=== PATIENT | female | born 1940 | race Caucasian/White ===

== ENCOUNTER 2022-12-27 11:48 | Inpatient (IN) | payer MEDICARE, OTHER ==
[~2022-12-27] VITALS: Ht 170.2 cm; Wt 37.8 kg
[2022-12-27] MEDS ORDERED: IV NORMAL SALINE 1000 ML BAG IV ONE (12:15)
[2022-12-27] MEDS ORDERED: CEFTRIAXONE 2 G in IV DEXTROSE 5% 100 ML IV ONE (12:15)
[2022-12-27 12:23] LABS: BASOPHILS # (AUTO) 0.1 K/UL (0.0-0.2); BASOPHILS % (AUTO) 1.3 % (0.0-2.0); EOSINOPHILS # (AUTO) 0.1 K/uL (0.0-0.7); EOSINOPHILS % (AUTO) 0.8 % (0.0-7.0); HEMATOCRIT 32.1 % (31.2-41.9); HEMOGLOBIN 10.4 g/dL (10.9-14.3); LYMPHOCYTES # (AUTO) 1.4 K/uL (0.8-4.8); LYMPHOCYTES % (AUTO) 20.3 % (20.5-51.5); MEAN CORPUSCULAR HEMOGLOBIN 29.2 uug (24.7-32.8); MEAN CORPUSCULAR HGB CONC 32 g/dL (32.3-35.6); MEAN CORPUSCULAR VOLUME 90.1 fL (75.5-95.3); MONOCYTES # (AUTO) 2.4 K/uL (0.1-1.30); MONOCYTES % (AUTO) 35.5 % (0.0-11.0); NEUTROPHILS # (AUTO) 2.9 K/uL (1.8-8.9); NEUTROPHILS % (AUTO) 42.1 % (38.5-71.5); PLATELET COUNT (AUTO) 210 K/uL (179-408); RED BLOOD CELL COUNT(AUTO) 3.56 MIL/uL (3.63-4.92); RED CELL DISTRIBUTION WIDTH 20.2 % (12.3-17.7); WHITE BLOOD COUNT (AUTO) 6.8 K/uL (3.8-11.8)
[2022-12-27] MEDS ORDERED: ACET-2605 PO (12:28)
[2022-12-27] MEDS ORDERED: ACET-2154 PO ×2 (12:28)
[2022-12-27] MEDS ORDERED: LEVO88TA39 PO (12:31)
[2022-12-27] MEDS ORDERED: ASPI81TA31 PO (12:31)
[2022-12-27] MEDS ORDERED: NITR0.4T48 SL (12:31)
[2022-12-27] MEDS ORDERED: EZET10TA15 PO (12:31)
[2022-12-27] MEDS ORDERED: QUET25TA PO (12:31)
[2022-12-27] MEDS ORDERED: ASCO500T85 PO (12:31)
[2022-12-27] MEDS ORDERED: SACU1TAB PO (12:31)
[2022-12-27] MEDS ORDERED: ZINC56.713 TP (12:31)
[2022-12-27] MEDS ORDERED: CARV3.122 PO (12:31)
[2022-12-27] MEDS ORDERED: MULT-213 PO (12:31)
[2022-12-27] MEDS ORDERED: BISA10SU95 RC (12:31)
[2022-12-27 12:53] LABS: CALCIUM 9.4 mg/dL (8.5-10.1); CARBON DIOXIDE 28 mmol/L (21-32); CHLORIDE 101 mmol/L (98-107); CREATININE 0.5 mg/dL (0.6-1.3); GLUCOSE 94 mg/dL (74-106); POTASSIUM 4.1 mmol/L (3.5-5.1); SODIUM SERUM 132 mmol/L (136-145); UREA NITROGEN, BLOOD 21 mg/dL (7-18)
[2022-12-27 12:54] LABS: DIFFERENTIAL COMMENT 1
[2022-12-27 13:06] LABS: ACETAMINOPHEN 4.2 ug/mL (10-30); ALANINE AMINOTRANSFERASE 22 U/L (14-59); ALBUMIN 2.9 g/dL (3.4-5.0); ALKALINE PHOSPHATASE 49 U/L (50-136); ASPARTATE AMINOTRANSFERASE 21 U/L (15-37); BILIRUBIN,DIRECT 0.1 mg/dL (0.0-0.2); BILIRUBIN,TOTAL 0.4 mg/dL (0.2-1.0); TOTAL PROTEIN, SERUM 8.6 g/dL (6.4-8.2)
[2022-12-27 13:09] LABS: AMMONIA < 10 umol/L (11-32)
[2022-12-27 13:46] LABS: *BILIRUBIN,URIN NEGATIVE (NEGATIVE); *CLARITY,URINE CLEAR (CLEAR); *COLOR,URINE YELLOW (YELLOW); *KETONES,URINE NEGATIVE (NEGATIVE); *PROTEIN,URINE NEGATIVE (NEGATIVE); *UROBILINOGEN,URINE 0.2 E.U./dl (NORMAL); LEUKOCYTE ESTERASE ,URINE NEGATIVE (NEGATIVE); NITRITE, URINE POSITIVE (NEGATIVE); PH,URINE 5.5 (5.0-8.0); UGLUCOSE NEGATIVE (NEGATIVE)
[2022-12-27 13:47] LABS: *BLOOD, URINE TRACE (NEGATIVE)
[2022-12-27 14:00] LABS: *AMPHETAMINE, URINE NEGATIVE (NEGATIVE); *BARBITURATE, URINE NEGATIVE (NEGATIVE); *BENZODIAZEPINE, URINE NEGATIVE (NEGATIVE); *CANNABINOID, URINE NEGATIVE (NEGATIVE); *COCCAINE, URINE NEGATIVE (NEGATIVE); *OPIATE, URINE NEGATIVE (NEGATIVE); *PHENCYCLIDINE SCREEN,URINE NEGATIVE (NEGATIVE); FENTANYL, URINE NEGATIVE (NEGATIVE)
[2022-12-27 14:26] LABS: ETHANOL < 3 MG/DL (0-10)
[2022-12-27 14:47] LABS: BACTERIA,URINE MANY /HPF (NONE SEEN); RBC,URINE 0-3 /HPF (0-3); SQUAMOUS EPITHELIAL CELL,UR FEW /HPF (NONE SEEN); WBC,URINE 0-3 /HPF (0-3)
[2022-12-27 15:23] LABS: LYMPHOCYTES % (MANUAL) 17 % (20-40); MONOCYTES % (MANUAL) 28 % (2-10); NEUTROPHILS % (MANUAL) 55 % (42-75)
[2022-12-27 15:24] LABS: ANISOCYTOSIS 2+; PLATELET ESTIMATE ADEQUATE
[2022-12-27] MEDS ORDERED: ACETAMINOPHEN 325 MG TABLET PO PRN (15:45)
[2022-12-27] MEDS ORDERED: BISACODYL 10 MG SUPP.RECT RC PRN (15:45)
[2022-12-27] MEDS ORDERED: MAGNESIUM HYDROXIDE 30 ML LIQUID UDC PO PRN (15:45)
[2022-12-27] MEDS ORDERED: IV NS 1000 ML 1,000 ML IV PRN (15:45)
[2022-12-27] MEDS ORDERED: NITROGLYCERIN 0.4 MG/TAB BOTTLE SL PRN (15:45)
[2022-12-27] MEDS ORDERED: REMEDY ESSENTIAL ZINC PASTE 113 GM TP PRN (15:45)
[2022-12-27] MEDS ORDERED: ONDANSETRON 4 MG/2 ML VIAL IV PRN (15:45)
[2022-12-27] MEDS: CARVEDILOL 3.125 MG TABLET PO SCH (21:00)
[2022-12-27] MEDS: QUETIAPINE FUMARATE 25 MG TABLET PO SCH (21:31)
[2022-12-27] MEDS: EZETIMIBE 10 MG TABLET PO SCH (21:31)
[2022-12-28] VITALS: BP 91/60; TEMP 96.2; O2SAT 97
[2022-12-28 04:00] VITALS: BP 104/51; TEMP 95; O2SAT 96
[2022-12-28] MEDS: LEVOTHYROXINE SODIUM 88 MCG TABLET PO SCH (06:15)
[2022-12-28 06:37] LABS: CALCIUM 8.6 mg/dL (8.5-10.1); CREATININE 0.7 mg/dL (0.6-1.3); MAGNESIUM 2.1 mg/dL (1.8-2.4); POTASSIUM 3.5 mmol/L (3.5-5.1)
[2022-12-28 06:55] LABS: BASOPHILS # (AUTO) 0.1 K/UL (0.0-0.2); EOSINOPHILS % (AUTO) 0.7 % (0.0-7.0); HEMATOCRIT 30.6 % (31.2-41.9); HEMOGLOBIN 10.2 g/dL (10.9-14.3); LYMPHOCYTES # (AUTO) 0.8 K/uL (0.8-4.8); LYMPHOCYTES % (AUTO) 11.7 % (20.5-51.5); MEAN CORPUSCULAR HEMOGLOBIN 29.7 uug (24.7-32.8); MEAN CORPUSCULAR HGB CONC 33 g/dL (32.3-35.6); MEAN CORPUSCULAR VOLUME 88.9 fL (75.5-95.3); MONOCYTES % (AUTO) 30.2 % (0.0-11.0); NEUTROPHILS # (AUTO) 3.7 K/uL (1.8-8.9); NEUTROPHILS % (AUTO) 56.4 % (38.5-71.5); PLATELET COUNT (AUTO) 182 K/uL (179-408); RED BLOOD CELL COUNT(AUTO) 3.45 MIL/uL (3.63-4.92); RED CELL DISTRIBUTION WIDTH 19.9 % (12.3-17.7); WHITE BLOOD COUNT (AUTO) 6.6 K/uL (3.8-11.8)
[2022-12-28 07:00] LABS: DIFFERENTIAL COMMENT 1
[2022-12-28] MEDS: ASPIRIN 81 MG TAB.CHEW PO SCH (09:00)
[2022-12-28] MEDS: CARVEDILOL 3.125 MG TABLET PO SCH ×2 (09:01→21:01)
[2022-12-28] MEDS ORDERED: IV NS 1000 ML 1,000 ML IV SCH (10:30)
[2022-12-28 12:00] VITALS: BP 114/59; TEMP 98.4; O2SAT 96
[2022-12-28] MEDS: IV NS 1000 ML 1,000 ML IV PRN (12:14)
[2022-12-28] MEDS: CEFTRIAXONE 1 G in IV DEXTROSE 5% 50 ML IV SCH (12:41)
[2022-12-28 13:36] LABS: ANISOCYTOSIS 1+; LYMPHOCYTES % (MANUAL) 9 % (20-40); MONOCYTES % (MANUAL) 29 % (2-10); NEUTROPHILS % (MANUAL) 62 % (42-75); PLATELET ESTIMATE ADEQUATE
[2022-12-28 16:00] VITALS: BP 107/51; TEMP 97.8; O2SAT 96
[2022-12-28] MEDS: SACUBITRIL/VALSARTAN 24 MG-26 TABLET PO SCH (17:01)
[2022-12-28] MEDS: QUETIAPINE FUMARATE 25 MG TABLET PO SCH (21:01)
[2022-12-28] MEDS: EZETIMIBE 10 MG TABLET PO SCH (21:01)
[2022-12-28 21:13] VITALS: BP 136/61; TEMP 98.2; O2SAT 99
[2022-12-29 04:43] VITALS: BP 120/58; TEMP 98.2; O2SAT 98
[2022-12-29 05:42] LABS: BASOPHILS # (AUTO) 0.1 K/UL (0.0-0.2); EOSINOPHILS # (AUTO) 0.1 K/uL (0.0-0.7); EOSINOPHILS % (AUTO) 0.7 % (0.0-7.0); HEMATOCRIT 30.8 % (31.2-41.9); HEMOGLOBIN 10.2 g/dL (10.9-14.3); LYMPHOCYTES # (AUTO) 1.2 K/uL (0.8-4.8); LYMPHOCYTES % (AUTO) 14.6 % (20.5-51.5); MEAN CORPUSCULAR HEMOGLOBIN 29.6 uug (24.7-32.8); MEAN CORPUSCULAR HGB CONC 33 g/dL (32.3-35.6); MEAN CORPUSCULAR VOLUME 89.1 fL (75.5-95.3); MONOCYTES # (AUTO) 3.8 K/uL (0.1-1.30); MONOCYTES % (AUTO) 44.5 % (0.0-11.0); NEUTROPHILS # (AUTO) 3.3 K/uL (1.8-8.9); NEUTROPHILS % (AUTO) 39.2 % (38.5-71.5); PLATELET COUNT (AUTO) 186 K/uL (179-408); RED BLOOD CELL COUNT(AUTO) 3.45 MIL/uL (3.63-4.92); RED CELL DISTRIBUTION WIDTH 20.5 % (12.3-17.7); WHITE BLOOD COUNT (AUTO) 8.5 K/uL (3.8-11.8)
[2022-12-29] MEDS: LEVOTHYROXINE SODIUM 88 MCG TABLET PO SCH (06:14)
[2022-12-29] MEDS: IV NS 1000 ML 1,000 ML IV PRN (06:16)
[2022-12-29 06:21] LABS: DIFFERENTIAL COMMENT 1
[2022-12-29 06:37] LABS: CALCIUM 8.7 mg/dL (8.5-10.1); CARBON DIOXIDE 26 mmol/L (21-32); CHLORIDE 105 mmol/L (98-107); CREATININE 0.6 mg/dL (0.6-1.3); GLUCOSE 89 mg/dL (74-106); PHOSPHOROUS 2.9 mg/dL (2.5-4.9); POTASSIUM 3.9 mmol/L (3.5-5.1); SODIUM SERUM 138 mmol/L (136-145); UREA NITROGEN, BLOOD 14 mg/dL (7-18)
[2022-12-29] MEDS: CARVEDILOL 3.125 MG TABLET PO SCH ×2 (09:14→20:54)
[2022-12-29] MEDS: ASPIRIN 81 MG TAB.CHEW PO SCH (09:15)
[2022-12-29] MEDS: SACUBITRIL/VALSARTAN 24 MG-26 TABLET PO SCH ×2 (09:15→17:00)
[2022-12-29 10:13] LABS: ANISOCYTOSIS 2+; LYMPHOCYTES % (MANUAL) 20 % (20-40); MONOCYTES % (MANUAL) 40 % (2-10); NEUTROPHILS % (MANUAL) 41 % (42-75); PLATELET ESTIMATE ADEQUATE
[2022-12-29 11:42] VITALS: BP 99/50; TEMP 97.5; O2SAT 96
[2022-12-29] MEDS: CEFTRIAXONE 1 G in IV DEXTROSE 5% 50 ML IV SCH (14:54)
[2022-12-29 15:58] VITALS: BP 105/56; TEMP 98.1; O2SAT 97
[2022-12-29] MEDS: QUETIAPINE FUMARATE 25 MG TABLET PO SCH (20:14)
[2022-12-29] MEDS: EZETIMIBE 10 MG TABLET PO SCH (20:14)
[2022-12-29 20:48] VITALS: BP 93/62; TEMP 98; O2SAT 99
[2022-12-30 04:00] VITALS: BP 106/60; TEMP 98; O2SAT 99
[2022-12-30 06:10] VITALS: BP 106/60; TEMP 98; O2SAT 99
[2022-12-30] MEDS: LEVOTHYROXINE SODIUM 88 MCG TABLET PO SCH (07:13)
[2022-12-30] MEDS: CARVEDILOL 3.125 MG TABLET PO SCH (08:49)
[2022-12-30] MEDS: ASPIRIN 81 MG TAB.CHEW PO SCH (08:49)
[2022-12-30] MEDS: SACUBITRIL/VALSARTAN 24 MG-26 TABLET PO SCH ×2 (08:50→16:39)
[2022-12-30 09:25] VITALS: BP 106/62; TEMP 98.2; O2SAT 99
[2022-12-30] MEDS ORDERED: CEPH500C2 PO (11:32)
[2022-12-30] MEDS: CEFTRIAXONE 1 G in IV DEXTROSE 5% 50 ML IV SCH (13:00)
[2022-12-30 17:46] VITALS: BP 145/69; TEMP 98.2; O2SAT 99
== END 2022-12-30 18:30 | DRG 689 ==
LOC: ER 11:48 → MEDSURG3 19:47
PROVIDERS: ADMIT Internal Medicine; ATTEND Internal Medicine
PROC: 05H633Z Insertion of Infusion Device into Left Subclavian Vein, Percutaneous Approach (ICD-10-PCS; principal; 2022-12-28)
PROC: B547ZZA Ultrasonography of Left Subclavian Vein, Guidance (ICD-10-PCS; 2022-12-28)
DX: N39.0 Urinary tract infection, site not specified (principal); G93.41 Metabolic encephalopathy; N17.0 Acute kidney failure with tubular necrosis; B96.20 Unspecified Escherichia coli [E. coli] as the cause of diseases classified elsewhere; E86.0 Dehydration; E03.9 Hypothyroidism, unspecified; E78.5 Hyperlipidemia, unspecified; I25.10 Atherosclerotic heart disease of native coronary artery without angina pectoris; I50.9 Heart failure, unspecified; I11.0 Hypertensive heart disease with heart failure; Z96.642 Presence of left artificial hip joint; J44.9 Chronic obstructive pulmonary disease, unspecified; R53.1 Weakness; G30.1 Alzheimer's disease with late onset; F02.80 Dementia in other diseases classified elsewhere, unspecified severity, without behavioral disturbance, psychotic disturbance, mood disturbance, and anxiety; M06.9 Rheumatoid arthritis, unspecified; G62.9 Polyneuropathy, unspecified; F29 Unspecified psychosis not due to a substance or known physiological condition; Z20.822 Contact with and (suspected) exposure to COVID-19
CPT/HCPCS: 36415; 70030-TC; 70450; 71045; 83605; 83735; 84100; 84443; 84484; 85025; 85730; 87040; 93005; A4663; A6209; A6213; C1758; G0378; G0480; J0696; J7040